=== PATIENT | female | born 1940 | race Two or more races ===

== ENCOUNTER 2018-03-29 10:39 | Outpatient (CLI) | payer OTHER | END 2018-03-29 10:43 | disposition home or self-care (01) | LOC: RAD 10:39 | DX: I10 Essential (primary) hypertension (principal); I15.8 Other secondary hypertension ==

== ENCOUNTER 2022-01-22 09:41 | Outpatient (CLI) | payer OTHER | END 2022-01-22 09:55 | disposition home or self-care (01) | LOC: LAB 09:41 | DX: Z20.822 Contact with and (suspected) exposure to COVID-19 (principal); Z20.828 Contact with and (suspected) exposure to other viral communicable diseases; U07.1 COVID-19; D68.9 Coagulation defect, unspecified ==